=== PATIENT | female | born 1960 | race Caucasian/White ===

== ENCOUNTER 2022-01-02 11:58 | Emergency (ER) | payer OTHER ==
[~2022-01-02] VITALS: Ht 157.5 cm; Wt 72.1 kg
[2022-01-02] MEDS ORDERED: ZESTRIL5 MG PO (12:17)
[2022-01-02] MEDS ORDERED: LIPITOR10 MG (12:17)
[2022-01-02] MEDS ORDERED: OXYBUTYNIN CHLOR5 MG PO (12:18)
[2022-01-02] MEDS ORDERED: ALENDRONATE SOD70 MG PO (12:18)
[2022-01-02] MEDS ORDERED: RESTASIS1 DROP OD (12:19)
[2022-01-02] MEDS ORDERED: VAZALORE81 MG PO (12:19)
[2022-01-02] MEDS ORDERED: VITAMIN D21250 MCG (12:19)
[2022-01-02] MEDS ORDERED: VENTOLIN HFA18 GM (12:20)
[2022-01-02] MEDS ORDERED: IBU800 MG PO (12:20)
[2022-01-02] MEDS ORDERED: PERCOCET 5-3251 EACH PO ×3 (12:46→14:20)
== END 2022-01-02 12:57 | disposition home or self-care (01) ==
LOC: ED 11:58
DX: S82.841A Displaced bimalleolar fracture of right lower leg, initial encounter for closed fracture (principal); S93.431A Sprain of tibiofibular ligament of right ankle, initial encounter; W19.XXXA Unspecified fall, initial encounter; Z72.89 Other problems related to lifestyle; Z88.2 Allergy status to sulfonamides; Z88.1 Allergy status to other antibiotic agents; Z79.899 Other long term (current) drug therapy; Z79.82 Long term (current) use of aspirin
CPT/HCPCS: 73610; 99283-25; A9270